=== PATIENT | female | born 1995 | race Caucasian/White ===

== ENCOUNTER 2024-08-20 18:07 | Emergency (ER) | payer OTHER, SELFPAY ==
[2024-08-20 18:11] VITALS: BP 115/75
[2024-08-20 18:48] LABS: % Basophils 0.6 % (0-2); % Eosinophils 1.4 % (0-6); % Immature Granulocytes 0.4 % (0-0.5); % Lymphocytes 20.7 % (20.5-51.1); % Monocytes 7.4 % (1.7-9.3); % Neutrophils 69.5 % (42.2-75.2); Absolute Basophils 0.1 10^3/uL (0-0.2); Absolute Eosinophils 0.1 10^3/uL (0-0.7); Absolute Lymphocytes 1.9 10^3/uL (1.2-3.4); Absolute Monocytes 0.7 10^3/uL (0.1-0.6); Absolute Neutrophils 6.2 10^3/uL (1.4-6.5); Hematocrit 38.7 % (37.0-47.0); Hemoglobin 13.4 g/dL (12.0-16.0); Mean Corp Hgb Conc. 34.6 g/dL (33.0-37.0); Mean Corpuscular Hgb 30.2 pg (27.0-31.0); Mean Corpuscular Volume 87.4 fL (81.0-99.0); Mean Platelet Volume 10.5 fL (7.4-10.4); Nucleated Red Blood Cells % 0 %; Platelet Count 306 10^3/uL (130-400); Red Blood Cell Count 4.43 10^6/uL (4.20-5.40); Red Cell Dist. Width 12.4 % (11.5-14.5)
[2024-08-20 18:56] LABS: HCG, Serum Qualitative Screen Negative
[2024-08-20 19:00] LABS: ALT (SGPT) 13 U/L (0-35); AST (SGOT) 20 U/L (14-36); Albumin 5.1 g/dl (3.5-5.0); Alkaline Phosphatase 58 U/L (38-126); Blood Urea Nitrogen 15 mg/dl (7-17); Calcium 9.8 mg/dl (8.4-10.2); Carbon Dioxide 27 mmol/L (22-30); Chloride 97 mmol/L (98-107); Glucose 103 mg/dl (70-99); Potassium 3.5 mmol/L (3.5-5.1); Sodium 136 mmol/L (135-145); Total Bilirubin 3.2 mg/dl (0.2-1.3); Total Protein 8.2 g/dl (6.3-8.2); eGFR > 60.00
[2024-08-20 19:01] LABS: Lipase 34 U/L (23-300)
[2024-08-20 19:30] VITALS: BMI 22.2
--- NOTE | 2024-08-20 20:18 | ED.GENMED ---
History of Present Illness
General
Chief Complaint: Abdominal Pain
Source: patient
Exam Limitations: none
Time Seen by Provider: 08/20/24 19:26
Nursing documentation reviewed up to this point in time: agreed with
History of Present Illness
History of Present Illness:
The patient is a very pleasant 29-year-old female who reports right lower abdominal pain that started fairly suddenly yesterday evening and has been constant. Patient reports it was associated initially with a feeling of lightheadedness and nausea
but that seems to have gone away. Patient reports that when she gets up and walks around, her right lower abdominal pain worsens. She denies any past surgical history. She reports that in high school she had ' gallbladder inflammation'. She
denies right upper abdominal pain to me. Denies right upper back pain. She denies urinary symptoms. She denies pelvic pain and vaginal discharge. She is currently menstruating.
Past History
Past History
ED Past Medical History: None
ED Past Surgical History: None
Social History
Tobacco: Non-smoker
Alcohol: Other
Drug: None
Personal: Other
Living: with family
Employment: Employed
Family History
Family History: Other
Review of Systems
Review of Systems
Allergies reviewed?: Yes
All Other Systems: ROS reviewed and negative except as documented in HPI and ROS
Constitutional: Reports no symptoms
EENT: Reports no symptoms
Respiratory: Reports no symptoms
Cardiac: Reports no symptoms
ABD/GI: Reports abdominal pain and nausea
: Reports no symptoms
Musculoskeletal: Reports no symptoms
Skin: Reports no symptoms
Neurological: Reports no symptoms
Endocrine: Reports no symptoms
Hematologic/Lymphatic: Reports no symptoms
Psychiatric: Reports no symptoms
Phy Exam
Physical Exam
Physical Exam:
Physical Exam
General: no apparent distress, not acutely ill
Neck: supple. no meningeal signs. normal psoterior pharynx
Heart: s1/s2 regular rate and rhythm, no murmur. equal radial pulses.
Lungs: no acute respiratory distress. clear bilaterally
Abdomen: Soft, nondistended. No right upper quadrant tenderness. Tenderness at area of McBurney's point. Pelvic area is nontender. No pulsatile mass, no rebound or guarding
Neuro: alert and oriented. no focal neurological deficits
Skin: no rash
Psychiatric: well kept. interactive and cooperative
Extremities: no edema. no calf tenderness. negative homans. good distal pulses
Course
Orders/Labs/Results
Orders:
Orders
08/20/24 18:15
Test Result ONCE
08/20/24 18:24
Complete Blood Count/With Diff Urgent
Comprehensive Metabolic Panel Urgent
HCG, Serum Qualitative Screen Urgent
Lipase Urgent
08/20/24 20:18
CT Abd/pelvis W Iv Cont Urgent
Comment:
Reason For Exam: RLQ pain for 2 days
Ketorolac [Toradol] 30 mg IV NOW STA
08/20/24 22:17
US Pelvis Only (non-obstetric) Urgent
Comment:
Reason For Exam: RLQ pain
Abnormal Lab Results
08/20/24
18:24
MPV 10.5 H fL
(7.4-10.4)
Absolute Monos (auto) 0.7 H 10^3/uL
(0.1-0.6)
Chloride 97 L mmol/L
(98-107)
Glucose 103 H mg/dl
(70-99)
Total Bilirubin 3.2 H mg/dl
(0.2-1.3)
Albumin 5.1 H g/dl
(3.5-5.0)
08/20/24 18:24
08/20/24 18:24
Vital Signs
Initial and Last Documented VS:
Initial Vital Signs
Temp Pulse Resp BP Pulse Ox
97.8 F 94 16 115/75 100
08/20/24 18:11 08/20/24 18:11 08/20/24 18:11 08/20/24 18:11 08/20/24 18:11
Last Documented Vital Signs
Temp Pulse Resp BP Pulse Ox
97.8 F 94 16 115/75 100
08/20/24 18:11 08/20/24 18:11 08/20/24 18:11 08/20/24 18:11 08/20/24 18:11
MDM/Problems Addressed
Differential Diagnosis Includes:
Acute appendicitis, acute cholecystitis, symptomatic gallbladder disease, ovarian cyst, ovarian torsion
MDM/Problems Addressed:
Patient presents with acute right lower abdominal pain
*Radiology
Radiology exam reviewed: radiology read reviewed
*Pulse Oximetry
Patient hypoxic: no
*Critical Care Note
Total Time (30-74mins, 75-104mins- exclusive of procedures): Not Applicable
Data Reviewed
Source: patient
Update Note
Update Note:
11:00 PM patient reports her pain feels much better. CAT scan shows no inflammatory changes around her appendix. CAT scan shows normal-appearing gallbladder and liver.
11:55 PM patient still remains comfortable and well. Ultrasound shows left-sided ovarian cyst and a small amount of free fluid in the pelvis. It is unclear what is causing patient's right lower abdominal pain. Given that patient looks well and
feels better, I feel she could safely go home. We did talk about acute appendicitis and encouraged that patient return with any worsening right lower abdominal pain and/or fever.
ED Attending Note
-
Portions of this chart may have been created with voice recognition software.� Occasional wrong word or��sound alike� substitutions may have occurred due to the inherent limitations of voice recognition software.
Discharge Plan
Departure
Patient Disposition: Home (Routine Discharge)
Date of Disposition: 08/20/24
Time of Disposition: 23:56
Patient with high blood pressure during this ER visit?: No
Condition: Good
Covid-19: Not Applicable
Discharge Problem:
Abdominal pain, right lower quadrant, Ovarian cyst
Instructions: Abdominal pain in adults - ED discharge instructions, Ovarian cyst - ED discharge instructions
Referrals:
NONE,* [Family Provider] -
Activity Restrictions/Additional Instructions:
Take ibuprofen 600 mg every 6-8 hours for pain. If the pain persist for more than 48 hours, please follow-up with your veterinarian epidemiologist.
Please return with any fever or worsening abdominal pain
Interventions
Interventions:
*Risk Screen - Suicide Last Done: 08/20/24 19:30
*General Assessment Last Done: 08/20/24 19:30
*Neglect/Abuse Screening Last Done: 08/20/24 19:30
ED- Fall Risk Assessment Last Done: 08/20/24 19:30
*ED COVID-19 Vaccine History Last Done: 08/20/24 19:30
PS-[facility]ed[facility] Assessment Last Done: 08/20/24 19:30
Discharge Date and Time
Print Language: CITIZEN OF [place]
[2024-08-20] MEDS: TORADOL 30 MG IV (20:27)
== END 2024-08-21 00:25 | disposition home or self-care (01) ==
LOC: EMR 18:07
PROVIDERS: Emergency Medicine; EMERGENCY PHYSICIAN Emergency Medicine
DX: N83.202 Unspecified ovarian cyst, left side (principal); R10.31 Right lower quadrant pain
CPT/HCPCS: 96374; 99284; 74177; 76856; 80053; 83690; 84703; 85025; Q9967